=== PATIENT | male | born 1990 | race Caucasian/White ===

== ENCOUNTER 2023-01-15 18:47 | Emergency (ER) | payer OTHER, SELFPAY ==
--- NOTE | 2023-01-15 18:54 | ED.SKABFB ---
HPI - Skin/Abscess/Foreign Bdy General Chief complaint: Allergic Reaction Stated complaint: hives x2 days , throat swelling Time Seen by Provider: 01/15/23 21:38 Source: patient Mode of arrival: ambulatory Limitations: no limitations History of Present Illness HPI narrative: 32yoM with NO sig PMHx who is presenting to the ER with complaints of improving headache, allergic reaction, Urticaria, throat tightness, difficulty breathing and upper lip swelling. He reports that he took Benadryl and then Jasmin prior to arrival and came here for further evaluation treatment. Reports on Tuesday he was at a friend's house and he did obtain some mosquito bites. Although he has had mosquito bites in the past and has not had allergic reactions to them. He reports that a few years ago he had a similar presentation he is unsure what caused the allergic reaction. He has never had to be intubated for allergic reaction. Denies changes in lotions or detergents. Denies new medications or any changes in medications. Denies drainage from rash. Denies CP. Denies wheezing or throat swelling. Denies any difficulty swallowing. Denies any recent sick contacts or recent travel. Denies had fever, chills, body aches or recent illness, cough or shortness of breath, palpitations, nausea /vomiting /diarrhea, abdominal pain, stiffness of the muscles, muscle aches, dizziness, numbness or tingling or any other symptoms complaints or concerns at this time.. complaint: rash Onset (ago): week(s) ( Started on Tuesday continues to worsen) Location: generalized Severity: mild Quality: constant and pruritic Pain Consistency: constant Relieving factors: none Exacerbating factors: none Context: witnessed insect bite Treatments prior to arrival: other ( Benadryl and Jasmin) Related Data Previous Rx's Medication Instructions Recorded diphenhydramine HCl 25 mg tablet 50 mg PO TID PRN allergic reaction 01/15/23 (Benadryl Allergy) #15 tabs epinephrine 0.3 mg/0.3 mL 0.3 mg (0.3 mL) IM Q20M PRN 01/15/23 injection, auto-injector (EpiPen) anaphylaxis #2 ea famotidine 20 mg tablet (Pepcid) 20 mg PO BID rash #15 tabs 01/15/23 prednisone 20 mg tablet 40 mg PO DAILY inflammation 5 days 01/15/23 #10 tabs Allergies Allergy/AdvReac Type Severity Reaction Status Date / Time No Known Allergies Allergy Verified 01/15/23 18:56 [No Known Allergies*] Review of Systems Review of Systems: Constitutional : No Fever, No Chills , no body aches, no recent illness Head/Face: + resolved upper right lip facial swelling, No facial redness ENT/Mouth : No oral/throat swelling, No Hoarseness, No Swallowing Difficulty Eyes: No Eye Pain, No Swelling, No Redness Cardiovascular : No Chest Pain, + resolved SOB, No palpitations Respiratory : No Cough, No Sputum, No Wheezing, No Smoke Exposure, No Dyspnea Gastrointestinal : No Nausea, No Vomiting, No Diarrhea, No abdominal Pain Genitourinary : No Dysuria, No Urinary Frequency, No Hematuria Musculoskeletal : No joint pain, No Myalgias, No Joint Swelling Skin : No Skin Lesions, + rash Neuro : No Weakness, No Numbness, No Headache, No dizziness, No tingling Psych : No Anxiety/Panic, No Depression Heme/Lymph: No Bruising, No Lymphadenopathy Endocrine : No Polyuria, No Polydipsia Denies changes in lotions or detergents. Denies new medications or any changes in medications. Denies drainage from rash. Denies any recent sick contacts or recent travel. Yes all other systems are reviewed and are negative PMFSH Past Medical History Attestation statement: The following information was validated with the patient. Source: old records reviewed and nursing notes reviewed Social History Social History Advance Directives: No Advance Directives Information Provided: Yes Physical Exam Vital Signs: Vital Signs: Last Vital Signs Temp 98.1 F 01/15/23 18:57 Pulse 106 H 01/15/23 18:57 Resp 18 01/15/23 18:57 BP 146/107 H 01/15/23 18:57 Pulse Ox 100 01/15/23 18:57 O2 Del Method Room Air 01/15/23 18:57 BMI result Body Mass Index 28.2 Vital signs reviewed. Blood pressure Hypertensive at 146/107. Pulse tachycardic at 106. Respiration normal. Oxygen normal. Temperature normal. Appearance: Alert. Oriented X3. No acute distress. Head: Normal external exam. Normocephalic. Atraumatic. Eyes: PERRLA. EOMI. Conjunctiva and sclera normal. Eyelids normal. ENT: EAC normal. TM's Normal. Pharynx normal. Uvula midline. Moist mucous membranes. No lesions/ulcerations or masses noted on the tongue. Normal voice. No trismus noted. No drooling noted. No muffled voice noted. No angioedema noted. Neck: Normal inspection. Neck supple. FROM. No adenopathy. Thyroid Normal. No meningeal signs. CVS: Normal heart rate and rhythm. Heart sound normal. Pulses normal throughout. No murmurs/rales/gallops. Respiratory: No respiratory distress. Painless inspiration. Breath sounds normal. No wheezes/rales/rhonchi noted. Chest nontender. No accessory muscle usage noted or decreased air movement noted. Abdomen: Soft and nontender. Back: Full range of motion noted. Nontender. Skin: Skin warm and dry. Normal skin color. Normal skin turgor. No rashes/lesions/lacerations noted. Extremities: Extremities exhibit normal range of motion and nontender. Neuro: Oriented X 3. No motor deficit. No sensory deficit. Reflexes normal. Normal steady gait. No focal neuro deficits noted. CN's II-XII intact bilaterally? Vascular: + radial pulses. Normal cap refill. No cyanosis noted to upper extremity nails Course Course Course Narrative: This is an RME: Additional HPI, ROS, PE not included below will be deferred to primary provider. Patient is a 32-year-old male presents to the emergency department for evaluation of Urticaria x 5 days, reportedly unrelieved with Benadryl and then Jasmin. Today has throat tightness, rpeorts difficulty breathing, and upper lip swelling which prompted ED visit. No known allergies. Reports a similar event approximately 15 years ago of unknown etiology. PE: LSCTA, no angioedema, speaking clear full sentences, urticaria to the torso Reevaluation(s) Reevaluation #1: IMP/Plan: Allergic rxn. Not anaphylaxis. Not sepsis/ infectious etiology. Patient well appearing in no acute distress, breathing easily without throat symptoms. Speaking full sentences, and handling secretions without difficulty. There is no obvious threat to airway. Lungs are CTA in all arizmendi. No signs of angioedema, stridor, airway compromise, anaphylaxis or anaphylactic shock. Not c/w SSSS/ TEN/ Eryth multiforme/ Richardson Johnsons. Given HPI and PE - Will watch and observe after giving IM Solu-Medrol and Pepcid. patient already took Benadryl and Jasmin. If patient continues to be symptom free - will d/c with return precautions. Patient understands and agrees with plan Time: 21:58 Medications Administered Discontinued Medications Generic Name Dose Route Start Last Admin Trade Name Freq PRN Reason Stop Dose Admin Famotidine 20 mg 01/15/23 21:45 01/15/23 21:52 Famotidine 20 Mg Tablet PO 01/15/23 21:46 20 mg ONCE ONE Administration Methylprednisolone Sodium Succinate 60 mg 01/15/23 21:45 01/15/23 21:52 Methylprednisolone Sod Succ 125 Mg/2 Ml Vial IM 01/15/23 21:46 60 mg ONCE ONE Administration Medical Decision Making Medical Decision Making MDM Narrative: see course Differential Diagnosis Differential Diagnoses: The differential diagnosis associated with the presentation includes see course Admission/Observation Consideration of admission/observation: Escalation of care including admission/observation considered External Record Review External record reviewed: Inpatient record, Office record, Outpatient record, Prior outpatient labs, Prior outpatient radiology, Primary care record and Outside ED record All prior labs/imaging /EKG and notes that are accessible in our system reviewed by myself Prescription Management I considered prescription management with: Other ( prednisone, Benadryl, Pepcid and EpiPen) Social Determinants Patient?s care significantly limited by Social Determinants of Health including: Other Social Determinant of Health Discharge Plan Discharge Clinical Impression: Allergic reaction, Urticaria Patient Disposition: Home, Self-Care Instructions: Angioedema (ED), General Allergic Reaction (ED), Allergy Testing (ED) Prescriptions: New prednisone 20 mg tablet 40 mg PO DAILY 5 Days Qty: 10 0RF diphenhydramine HCl [Benadryl Allergy] 25 mg tablet 50 mg PO TID PRN (Reason: allergic reaction) Qty: 15 0RF famotidine [Pepcid] 20 mg tablet 20 mg PO BID Qty: 15 0RF epinephrine [EpiPen] 0.3 mg/0.3 mL auto-injector 0.3 mg IM Q20M PRN (Reason: anaphylaxis) Qty: 2 0RF Rx Instructions: do not exceed 3 doses per episode Referrals: Physician,None [Primary Care Provider] - (Your pcp this week for allergy testing referral) Interventions: ED Discharge Assessment Last Done: 01/15/23 21:56 Discharge Date/Time: 01/15/23 21:56
[2023-01-15 18:57] VITALS: BP 146/107; PULSE 106; RESP 18; TEMP 36.7; O2SAT 100; BMI 28.2
--- NOTE | 2023-01-15 20:47 | PC.NURSE ---
pt talking in full sentences no s/s of resp distress.
[2023-01-15] MEDS: Famotidine 20 MG TABLET PO (21:52)
[2023-01-15] MEDS: methylPREDNISolone Sod Succ 125 MG/2 ML VIAL 60 MG IM (21:52)
== END 2023-01-15 21:56 | disposition home or self-care (01) ==
PROVIDERS: Emergency Provider Emergency Medicine
DX: L50.9 Urticaria, unspecified (principal); T78.40XA Allergy, unspecified, initial encounter; X58.XXXA Exposure to other specified factors, initial encounter
CPT/HCPCS: 96372; 99283; 99284; J2930

== ENCOUNTER 2024-09-12 08:28 | Emergency (ER) | payer OTHER, SELFPAY ==
--- NOTE | ~2024-09-12 | XR_ITS ---
EXAMINATION: XR CHEST 1 VIEW HISTORY: near syncope COMPARISON: Comparison is made with the prior examination dated 04/16/2016. FINDINGS: A single AP portable view of the chest performed at 9:13 AM is submitted. The lungs are expanded and clear. There is no pleural effusion, pneumothorax, or pulmonary vascular congestion. The heart is normal in size. The bones are intact. XR/XR chest 1V IMPRESSION: No acute cardiopulmonary abnormality. Electronically signed by: Rowdy Chapa MD 09/12/2024 09:29 AM EDT
[2024-09-12 08:31] VITALS: BP 142/80; PULSE 72; RESP 20; TEMP 36.6; O2SAT 98; BMI 23.2
--- NOTE | 2024-09-12 09:03 | ED_ITS ---
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 He states he began to feel a warm sensation in his legs coupled after he sat for a bit and felt he was able to stand. When he went to stand up, his legs gave out and he was unable to stand again causing him to fall on the floor and prompted him to call his significant other. He explains this is abnormal for him. Patient states that he is a runner and runs approximately 8-9 miles per day and stays active. 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 He states that he is experiencing consistent chills and nausea since the incident this morning. He denies, loss of consciousness, headstrike, dizziness, headache, current shortness of breath, current chest pain, visual changes or vomiting. Onset (ago): hour(s) Associated symptoms: fever/chills (chills, no reported fever ), nausea/vomiting (nausea without vomiting), shortness of breath (now resolved), weakness (weakness in lower extremities - now resolved) and other (near syncopal episode) Treatments prior to arrival: none Related Data Previous Rx's ?Medication ?Instructions ?Recorded diphenhydramine HCl 25 mg tablet 50 mg (2 x 25 mg) PO TID PRN 01/15/23 (Benadryl Allergy) allergic reaction #15 tabs epinephrine 0.3 mg/0.3 mL 0.3 mg (0.3 mL) IM Q20M PRN 01/15/23 injection, auto-injector (EpiPen) anaphylaxis #2 ea famotidine 20 mg tablet (Pepcid) 20 mg PO BID rash #15 tabs 01/15/23 prednisone 20 mg tablet 40 mg (2 x 20 mg) PO DAILY 01/15/23 inflammation 5 days #10 tabs Allergies Allergy/AdvReac Type Severity Reaction Status Date / Time No Known Allergies Allergy Verified 09/12/24 08:33 [No Known Allergies*] Review of Systems 2 Constitutional: Constitutional: Reports no additional constitutional complaints, Reports chills, Denies fever(s), Denies night sweats and Reports weakness (now resolved) Eyes: Eyes: Reports no additional eye complaints, Denies blurry vision, Denies change in vision, Denies diplopia, Denies eye discharge, Denies loss of vision and Denies eye pain ENT: Denies dizziness Cardiovascular: Cardiovascular: Denies chest pain, Denies lightheadedness, Denies Loss of Consciousness and Reports dyspnea (now resolved) Respiratory: Respiratory: Reports dyspnea (now resolved) Gastrointestinal: Gastrointestinal: Reports no additional gastrointestinal complaints, Denies abdominal pain, Denies melena, Denies hematochezia, Denies change in bowel habits and Denies change in stool character Genitourinary: Genitourinary: Reports no additional male genitourinary complaints, Denies hematuria, Denies oliguria, Denies difficulty urinating, Denies dysuria, Denies urinary frequency, Denies urinary hesitancy, Denies urinary incontinence and Denies urinary urgency Musculoskeletal: Musculoskeletal: Reports no additional musculoskeletal complaints, Denies numbness and Denies tingling Neurologic: Denies dizziness, Denies loss of vision, Denies numbness, Denies tingling, Reports weakness (now resolved) and Reports other (near syncopal episode) Psychiatric: Psychiatric: Reports no additional psychiatric complaints Endocrine: Endocrine: Reports no additional endocrine complaints Hematologic/Lymphatic: Hematologic/Lymphatic: Reports no additional hematologic/lymphatic complaints Allergic/Immunologic: Allergic/Immunologic: Reports no additional allergic/immunologic complaints [facility] Past Medical History Attestation statement: The following information was validated with the patient. (all information validated with the patient's significant other) [facility] Narrative: Estela Thyrodititis Source: old records reviewed, nursing notes reviewed and other (patient's significant other provided additional history and confirmed the history provided by the patient. ) Physical Exam ED Vital Signs: Vital Signs - 24 hr 09/12/24 08:31 09/12/24 12:37 Temperature 97.8 F 98.0 F Pulse Rate 72 57 Respiratory Rate 20 16 Blood Pressure 142/80 H 142/76 H Pulse Oximetry 98 100 Oxygen Delivery Method Room Air Room Air BMI result Body Mass Index 23.2 Const General: cooperative, no acute distress, alert and awake Nutritional Appearance: well nourished Orientation/consciousness: patient oriented x3 Limitations: no limitations HENMT Head: Yes normal to inspection and Yes atraumatic Ears: hearing grossly normal bilaterally and external ears normal General nose exam: Normal external nose present, no nasal discharge noted and no epistaxis Face and sinus: Yes normal facial exam, No abrasion and No laceration Mouth: Normal oral and palatal mucosa present, no drooling and no muffled voice Eyes General: appearance normal, both eyes and all related structures Periorbital: periorbital findings normal Eyelids: Yes eyelids normal Conjunctivae: conjunctivae normal Pupils: Equal, round and reactive pupils present EOM: EOMs intact bilaterally Neck Neck: Yes normal visual inspection, Yes full ROM and Yes no lymphadenopathy Chest Chest palpation & inspection: normal inspection of the chest Resp Effort & Inspection: normal respiratory effort and able to speak in complete sentences GI Inspection: Yes normal to inspection Neuro General: patient oriented x3, moves all extremities and CN's II-XI intact bilaterally Cranial nerves: Yes Equal, round and reactive pupils present Cognition (Neuro): normal cognition Extrem General: Yes normal to inspection, Yes full ROM and Yes capillary refill normal Psych Appearance: grossly normal Mental Status: mental status grossly normal Affect: normal affect Attitude: cooperative Thought process: Normal thought process present Thought content: Normal thought content present Insight: Good insight present (Psych) Medications Administered Discontinued Medications Generic Name Dose Route Start Last Admin Trade Name Freq PRN Reason Stop Dose Admin Sodium Chloride 1,000 mls @ 999 mls/hr 09/12/24 10:45 09/12/24 11:20 Ns IV 09/12/24 11:45 999 mls/hr .Q1H1M RODRIGO Administration Medical Decision Making Medical Decision Making MDM Narrative: 34 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 Clinical presentation are suggestive of a near vasovagal syncopal episode. EKG showed bradycardia of 53 BPM, however patient explains he is a daily runner who runs approximately 8-9 miles per day - making this heart rate likely to be his baseline. Discussed case with cardiology team due to near syncope and they agree EKG is normal. Troponin resulted within normal limits further ruling out cardiac etiology. Chest Xray was ordered to rule out any cardiopulmonary process, and resulted with no acute process. D-Dimer resulted within normal limits at 150 NG/ML - lowering my suspicion for pulmonary embolism. TSH reflex T4 ordered due to Estela diagnosis and patient not taking prescribed levothyroxine for 4-5 weeks. TSH resulted within normal limits at 1.79 lowering my suspicion of thyroid etiology for near syncope. COVID/Flu/RSV swabs negative. Patient received IV fluids and stated that he felt significantly better with resolved symptoms. I explained my physical exam findings as well as all test results to the patient and the patient's significant other. I answered all questions asked by the patient and the patient's significant other.I stressed the importance of the patient taking his medication as directed (either prescribed or as the over the counter packaging recommends). I stressed the importance of the patient following up with his primary care provider. I stressed the importance of the patient returning to the emergency department immediately if his symptoms were to worsen or if he were to develop any dizziness, shortness of breath, difficulty breathing, chest pain, blurry vision, loss of vision, nausea, vomiting, abdominal pain, fever, chills, back pain, or any other complaints. Patient and the patient's significant other verbalized agreement and understanding with this treatment plan and discharge Differential Diagnosis Differential Diagnoses: The differential diagnosis associated with the presentation includes Estela exacerbation [place] Pulmonary embolism Cardiac arrhythmia Viral illness Near syncope Vasovagal syncope Orthostatic hypotension Admission/Observation Consideration of admission/observation: Escalation of care including admission/observation considered Patient would have been admitted to the hospital had his work up had any findings where hospital admission was appropriate and his clinical presentation warranted hospital admission. Consult Healthcare Provider Management of the patient was discussed with: [employer] Operator (Spoke with the cardiology team as noted in the MDM rationale portion of this note) Lab Data [facility] Lab Attestation statement: I reviewed the patient's lab results. My interpretation of these results are in the MDM Rationale portion of this note. 09/12/24 09:35 09/12/24 09:35 Labs: Lab Results 09/12/24 09/12/24 Range/Units 09:35 10:47 WBC 4.9 (4.8-10.8) X10*3/uL RBC 4.95 (4.60-5.80) X10*6/uL Hgb 15.1 (14.0-18.0) g/dl Hct 43.8 (42.0-52.0) % MCV 88.5 (80.0-98.0) fL MCH 30.5 (27.0-33.0) pg MCHC 34.5 (31.0-36.0) g/dl RDW 12.3 (11.0-16.0) % Plt Count 213 (160-400) X10*3/uL MPV 10.3 (9.4-12.4) fL Immature Gran % (Auto) 0.2 (0.0-0.4) % Neut % (Auto) 57.7 (45-73) % Lymph % (Auto) 29.4 (20-40) % Charles % (Auto) 11.1 H (2-11) % Eos % (Auto) 0.8 (0-4) % Baso % (Auto) 0.8 (0-2) % Lymph # (Auto) 1.4 (1.2-4.9) X10*3/uL Charles # (Auto) 0.5 (0.1-1.2) X10*3/uL Eos # (Auto) 0.0 (0.0-0.4) X10*3/uL Baso # (Auto) 0.0 (0.0-0.2) X10*3/uL Abs Immat Gran (auto) 0.01 (0.00-0.03) X10*3/uL Absolute Neuts (auto) 2.8 (2.0-8.3) x10*3/uL Absolute Nucleated RBC 0.000 (0.0-0.012) X10*3/uL Nucleated RBC % (auto) 0.0 (0.0-0.2) /100WBC PT 12.6 H (10.9-12.4) SEC INR 1.1 (0.9-1.1) D-Dimer High Sensitivty < 150 < 150 NG/ML Sodium 144 (135-145) mmol/L Potassium 3.7 (3.3-5.1) mmol/L Chloride 110 H (96-108) mmol/L Carbon Dioxide 24 (22-29) mmol/L Anion Gap 14 (12-20) BUN 12 (9-16) mg/dL Creatinine 0.86 (0.5-1.4) mg/dL Estim Creat Clear Calc 111.2 Estimated GFR > 60 Random Glucose 88 (60-115) mg/dL Calcium 9.7 (8.4-10.2) mg/dL Magnesium 1.8 (1.6-2.6) mg/dL Total Bilirubin 0.9 (0.0-1.0) mg/dL AST 28 (5-37) U/L ALT 26 (0-40) U/L Alkaline Phosphatase 56 (39-117) U/L Troponin I High Sens < 2.7 (<3.5-35.0) ng/L Total Protein 7.5 (6.5-8.0) g/dL Albumin 4.8 (3.5-5.0) g/dL TSH 1.79 (0.32-4.0) uIU/mL Urine Color Yellow Urine Appearance Clear Urine pH 6.5 (5.0-9.0) Ur Specific [place] <= 1.005 (1.005-1.025) Urine Protein Negative (Neg-Trace) mg/dL Urine Glucose (UA) Negative (Negative) mg/dL Urine Ketones 15 (Negative) mg/dL Urine Blood Negative (Negative) Urine Nitrite Negative (Negative) Ur Leukocyte Esterase Negative (Negative) Influenza Type A (PCR) NEGATIVE (Negative) Influenza Type B (PCR) NEGATIVE (Negative) RSV RNA Qual (PCR) NEGATIVE (Negative) SARS-CoV-2 RNA (RT-PCR) NEGATIVE (Negative) Independent Interpretation I performed an independent interpretation of an: EKG and Plain X-Ray Interpretation: My interpretation is in agreement with the radiologist's impression of this imaging study. LEXAMINATION: XR CHEST 1 VIEW HISTORY: near syncope COMPARISON: Comparison is made with the prior examination dated 04/16/2016. FINDINGS: A single AP portable view of the chest performed at 9:13 AM is submitted. The lungs are expanded and clear. There is no pleural effusion, pneumothorax, or pulmonary vascular congestion. The heart is normal in size. The bones are intact. XR/XR chest 1V IMPRESSION: No acute cardiopulmonary abnormality. Electronically signed by: Rowdy Chapa MD 09/12/2024 09:29 AM EDT RP Dictated By: Rowdy Chapa MD Signed By: Electronically signed by Rowdy Chapa MD 09/12/24 0929 LI independently interpreted this EKG and am in agreement with the below findings: Vent. Rate: 53 BPM Atrial Rate: 53 BPM P-R Int: 110 ms QRS Dur: 84 ms QT Int: 406 ms P-R-T Axes: 9 50 15 degrees QTcB Int: 380 ms Sinus bradycardia with short NV No previous ECGs available DD/ 6 Radiology Impression Discussion of test interpretation with radiology: I have reviewed the radiologist's reading. Independent Historian Clinical information obtained from an independent historian. History obtained from or confirmed by: Other (PT significant other provided additional history and PT confirmed information that was given ) Critical Care Time Critical Care Time Critical Care Time: Yes Total Critical Care Time: 32 Attestation: I spent 32 minutes of Critical Care Time with this patient. This does not include time spent on separately reported billable procedures. Discharge Plan Discharge Clinical Impression: Near syncope Patient Disposition: Home, Self-Care Instructions: Near Syncope (ED) Additional Instructions: Your work up today was reassuring there is no emergent cause for your symptoms. Follow up with your primary care provider. Return to the emergency department immediately if your symptoms worsen or if you develop any numbness, tingling, dizziness, shortness of breath, difficulty breathing, chest pain, blurry vision, loss of vision, nausea, vomiting, abdominal pain, fever, chills, back pain, or any other complaints. Please see the information below about our Patient Portal. If you are not yet enrolled in the [facility] Patient Portal, you will receive an enrollment email invitation following your visit to any [facility] setting. You may also self-enroll in the Patient Portal by visiting our website: [email or web address] The following information is required to access the Patient Portal: - Your [facility] Medical Record Number - Your personal home email address (must match what is in your electronic medical record, Registration staff can assist with this) - Name - Date of Capabilities of the Patient Portal: - Message some providers - View upcoming appointments - Access your health summary, medical history, and visit history - View current conditions and allergies - View procedure and lab results - View your medications, including guidelines, side effects, and precautions - Complete pre-appointment questionnaires requested by your provider - Ready summary reports of your office visits and procedures To access the Patient Portal Mobile [employer], follow these directions: - Search [employer] in the [employer]antel Store or Google Chartboost Store - Download the [employer]el - Search for [facility] - Enter your login/password Prescriptions: No Action prednisone 20 mg tablet 40 mg PO DAILY 5 Days Qty: 10 0RF diphenhydramine HCl [Benadryl Allergy] 25 mg tablet 50 mg PO TID PRN (Reason: allergic reaction) Qty: 15 0RF famotidine [Pepcid] 20 mg tablet 20 mg PO BID Qty: 15 0RF epinephrine [EpiPen] 0.3 mg/0.3 mL auto-injector 0.3 mg IM Q20M PRN (Reason: anaphylaxis) Qty: 2 0RF Rx Instructions: do not exceed 3 doses per episode Referrals: [facility] Family Medicine [Provider Group] (Call to establish and follow up with a primary care provider. If you already have a primary care provider, please follow up with them.) [facility] Primary [facility] [Provider Group] (Call to establish and follow up with a primary care provider. If you already have a primary care provider, please follow up with them.) [facility] Primary [facility] [Provider Group] (Call to establish and follow up with a primary care provider. If you already have a primary care provider, please follow up with them.) [facility] Primary [facility] [Provider Group] (Call to establish and follow up with a primary care provider. If you already have a primary care provider, please follow up with them.) Stand Alone Forms: Work/School Release Interventions: ED Discharge Assessment Last Done: 09/12/24 12:37 Discharge Date/Time: 09/12/24 12:38 Print Language: Serbian
--- NOTE | 2024-09-12 09:05 | ECG_ITS ---
Test Reason : NEAR SYNCOPE Blood Pressure : */* mmHG Vent. Rate : 53 BPM Atrial Rate : 53 BPM P-R Int : 110 ms QRS Dur : 84 ms QT Int : 406 ms P-R-T Axes : 9 50 15 degrees QTcB Int : 380 ms Sinus bradycardia with short CA Otherwise normal ECG No previous ECGs available Referred By: Ansley Pete Electronically Signed By: TRACEY BOWLING
[2024-09-12 09:41] LABS: MANUAL DIFF FLAG NO
[2024-09-12 09:42] LABS: Basophils Percent Auto 0.8 % (0-2); Eosinophils Percent Auto 0.8 % (0-4); Hematocrit 43.8 % (42.0-52.0); Hemoglobin 15.1 g/dl (14.0-18.0); Imm Gran Abs Auto 0.01 X10*3/uL (0.00-0.03); Imm Gran Pct Auto 0.2 % (0.0-0.4); Lymphocytes Absolute Auto 1.4 X10*3/uL (1.2-4.9); Lymphocytes Percent Auto 29.4 % (20-40); Mean Corpuscular HGB Conc 34.5 g/dl (31.0-36.0); Mean Corpuscular Hemoglobin 30.5 pg (27.0-33.0); Mean Corpuscular Volume 88.5 fL (80.0-98.0); Mean Platelet Volume 10.3 fL (9.4-12.4); Monocytes Absolute Auto 0.5 X10*3/uL (0.1-1.2); Monocytes Percent Auto 11.1 % (2-11); Neutrophils Absolute Auto 2.8 x10*3/uL (2.0-8.3); Neutrophils Percent Auto 57.7 % (45-73); Platelet Count 213 X10*3/uL (160-400); Red Blood Count 4.95 X10*6/uL (4.60-5.80); Red Cell Distribution Width 12.3 % (11.0-16.0); White Blood Count 4.9 X10*3/uL (4.8-10.8)
[2024-09-12 09:54] LABS: INTERNATIONAL NORM RATIO 1.1 (0.9-1.1); Prothrombin Time 12.6 SEC (10.9-12.4)
[2024-09-12 09:58] LABS: Alanine Aminotransferase 26 U/L (0-40); Albumin Level 4.8 g/dL (3.5-5.0); Alkaline Phosphatase 56 U/L (39-117); Anion Gap 14 (12-20); Aspartate Amino Transferase 28 U/L (5-37); Bilirubin Total 0.9 mg/dL (0.0-1.0); Blood Urea Nitrogen 12 mg/dL (9-16); Calcium 9.7 mg/dL (8.4-10.2); Carbon Dioxide 24 mmol/L (22-29); Chloride 110 mmol/L (96-108); Creatinine Clr Calc Pharmacy 111.2; Estimated Glomerular Filt Rate > 60; Glucose Random 88 mg/dL (60-115); Magnesium 1.8 mg/dL (1.6-2.6); Potassium 3.7 mmol/L (3.3-5.1); Sodium 144 mmol/L (135-145); Total Protein 7.5 g/dL (6.5-8.0)
[2024-09-12 10:06] LABS: Troponin-I High Sensitivity < 2.7 ng/L (<3.5-35.0)
[2024-09-12 10:19] LABS: Influenza A PCR NEGATIVE (Negative); Influenza B PCR NEGATIVE (Negative); Resp Syncy Virus RNA Qual PCR NEGATIVE (Negative); SARS COV2 PCR INHOUSE NEGATIVE (Negative)
[2024-09-12 10:35] LABS: D Dimer High Sensitivity < 150 NG/ML
[2024-09-12 10:58] LABS: TSH reflex Free T4 1.79 uIU/mL (0.32-4.0)
[2024-09-12 11:09] LABS: Appearance Urine Clear; Color Urine Yellow; Glucose Urine UA Negative (Negative); Leukocyte Esterase Urine Negative (Negative); Nitrite Urine Negative (Negative); PH 6.5 (5.0-9.0); Specific Gravity - Urine <= 1.005 (1.005-1.025); Urine Blood Negative (Negative); Urine Ketones 15 mg/dL (Negative); Urine Protein Negative (Neg-Trace)
[2024-09-12 11:18] LABS: D Dimer High Sensitivity < 150 NG/ML
[2024-09-12] MEDS: 0.9 % Sodium Chloride 1,000 ML 999 ML IV (11:20)
[2024-09-12 12:37] VITALS: BP 142/76; PULSE 57; RESP 16; TEMP 36.7; O2SAT 100
== END 2024-09-12 12:38 | disposition home or self-care (01) ==
PROVIDERS: Physician Assistant Medical; Emergency Provider Emergency Medicine
DX: R55 Syncope and collapse (principal); R00.1 Bradycardia, unspecified; R06.02 Shortness of breath; Z79.899 Other long term (current) drug therapy; Z03.818 Encounter for observation for suspected exposure to other biological agents ruled out
CPT/HCPCS: 0241U; 36415; 71045; 80053; 81003; 83735; 84443; 84484; 85025; 85379; 85610; 93005; 99283; 99284

== ENCOUNTER → 2024-09-12 09:05 | Outpatient (BNV) | payer OTHER, SELFPAY | PROVIDERS: Emergency Provider Emergency Medicine; Visit Provider Radiology Diagnostic Radiology | DX: R55 Syncope and collapse (principal) | CPT/HCPCS: 71045 ==

== ENCOUNTER → 2024-09-12 09:05 | Outpatient (BNV) | payer OTHER, SELFPAY | PROVIDERS: Emergency Provider Emergency Medicine; Visit Provider Internal Medicine | DX: I45.6 Pre-excitation syndrome (principal); R00.1 Bradycardia, unspecified | CPT/HCPCS: 93010 ==

== ENCOUNTER 2025-03-29 13:57 | Outpatient (AMB) | payer OTHER, SELFPAY ==
--- NOTE | 2025-03-29 14:10 | A.OFFPC_ITS ---
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: No Accompanied by: Self / Same As Patient Allergies Beef Containing Products Allergy (Severe, Verified 03/29/25 14:34) Swelling corn Allergy (Unknown, Verified 03/29/25 14:34) Unknown wheat Allergy (Unknown, Verified 03/29/25 14:34) Unknown bananas Allergy (Severe, Uncoded 03/29/25 14:34) Unknown Tobacco use date assessed: 03/29/25 Dental Screening Dental Screen Date: 03/29/25 Did you have a dental visit in the last 12 months?: No Did you have a dental problem in the last 6 months where you did not have access to dental care?: No Was dental information given to patient?: No HPI ADVERTISING ASSISTANT MANAGER establish care HPI Details Previous PCP: [facility] Last visit: year and half ago Last PE: same Specialist: will need an angio technologist OBGYN:n/a Past medical history:ADDH since 6 grade until senior in high school, tamar's disease, anaphylactic, Medications: Family HX: maternal bipolar, grandmother, mother, substance on both sides mother and father, depression-father, schizophrenia paternal uncle Problem: The patient is a 35-year-old male presenting to [facility]. He is here with concerns related to ADHD, Tamar's Thyroiditis, allergic reactions, syncope, anxiety, and substance use disorder. The patient was diagnosed with ADHD in the 6th grade and was medicated until his senior year of high school. He reports that ADHD may be contributing to his current mental health issues, including anxiety and forgetfulness. Tamar's Thyroiditis was diagnosed during his first visit to a previous healthcare provider, and he was prescribed levothyroxine. However, due to the closure of the healthcare facility, he has not been able to continue his medication, leading to a collapse at work and an ER visit. The patient experiences severe allergic reactions, characterized by tingling, hives, and swelling of the throat and lips. He uses Benadryl to manage these reactions but has had to visit the ER for severe episodes. He reports episodes of syncope, particularly after sitting and attempting to stand, which have been associated with lightheadedness and shortness of breath. These episodes have occurred despite adequate hydration and have been linked to his cannabis use. The patient has a history of substance use disorder, specifically with cannabis, which he uses frequently. He acknowledges that cannabis may be exacerbating his syncope and anxiety symptoms. [facility] Medical History (Updated 04/02/25 @ 02:02 by LIZETTE Culp) Anxiety Tamar's thyroiditis ADHD Family History Father Substance abuse Schizophrenia Depression Maternal Grandmother Bipolar 2 disorder Mother Substance abuse Bipolar 2 disorder Social History Household Members: Spouse Housing: House Alcohol intake: never Patient Tobacco Use Status: Never used Tobacco e-Cigarette/Vaping Use: Never Used Substance Use Type: Marijuana Current occupational status: employed Current occupation: Maintance Cognitive needs: No Hearing needs: No Vision needs: Yes Questionnaire Thrive Questionnaire Date Thrive assessed: 03/27/25 I am a: Patient What is your living situation today?: I have a steady place to live Within the past 12 months, did the food you bought not last and you didn't have the money to get more?: Sometimes True Within the past 12 months, did you worry whether your food would run out before you got money to buy more?: Sometimes True Do you have trouble paying for medicines?: Yes Do you have trouble getting transportation to medical appointments?: No Do you have trouble paying your heating and electricity bill?: No Do you have trouble taking care of your child, family member or friend?: No Do you have trouble with day-to-day activities such as bathing, preparing meals, shopping, managing finances, etc.?: No Are you currently unemployed and looking for a job?: No Are you interested in more education?: Yes Currently or been in a relationship where the following occur: No concerns repor ramu THRIVE Score: 2 AUDIT C Alcohol Use Questionnaire (AUDIT-C) 1. How often do you have a drink containing alcohol?: Never 3. How often do you have six or more drinks on one occasion?: Never Total Score: 0 YANELIS-7 AMB Questionnaire YANELIS-7 Feeling nervous, anxious, or on edge: 2 = More than half the days Not being able to stop or control worryin = More than half the days Worrying too much about different things: 2 = More than half the days Trouble relaxin = More than half the days Being so restless that it is hard to sit still: 2 = More than half the days Becoming easily annoyed or irritable: 2 = More than half the days Feeling afraid as if something awful might happen: 2 = More than half the days Total YANELIS-7 score (0-4 normal; 5-9 mild; 10-14 moderate; 15-21 severe): 14 Source: Developed by Drs. Rowdy Tapia, Arlyn Alcazar, Jesús Henao and colleagues, with an educational sinan from [employer]. Review of Systems Const Denies headache(s) Eyes Denies loss of vision ENT Denies vertigo, Denies dizziness, Denies headache(s) and Denies sore throat Card Denies chest pain, Reports syncope, Denies leg edema, Reports lightheadedness and Reports dyspnea (assocated with syncope) Resp Denies cough, Denies hemoptysis, Reports dyspnea (assocated with syncope) and Denies wheezing GI Denies abdominal pain, Denies melena, Denies constipation, Denies diarrhea and Denies vomiting Denies dysuria, Denies urinary frequency and Denies urinary urgency Musc Denies arthralgias, Denies joint swelling, Denies numbness and Denies tingling Skin/Breast Reports lesions (hives during allergic episodes) Neuro Denies Abnormal speech present, Denies behavioral changes, Denies vertigo, Denies dizziness, Reports syncope, Denies headache(s), Denies loss of vision, Reports memory loss (impaired short term memory), Denies numbness and Denies tingling Psych Reports anxiety, Denies behavioral changes, Reports depression, Reports memory loss (impaired short term memory) and Reports panic attacks [place]/Lymph Denies easy bleeding and Denies easy bruising Aller/Immun Denies wheezing Physical exam (Primary Care) Vital Signs: Last Vital Signs Temp 97.3 F 03/29/25 14:11 Pulse 74 03/29/25 14:11 Resp 18 03/29/25 14:11 BP 160/110 H 10/17/25 14:11 Pulse Ox 97 03/29/25 14:11 Oxygen Delivery Method Room Air 03/29/25 14:11 BMI result Body Mass Index 21.5 Tobacco/Smoking Status: Tobacco use Status Tobacco use date assessed 03/29/25 03/29/25 14:32 Patient Tobacco Use Status Never used Tobacco 03/29/25 14:32 e-Cigarette/Vaping Use Never Used 03/29/25 14:32 Thrive Assessment: Date of Thrive Assessment Date Thrive assessed 03/27/25 03/29/25 14:32 Currently or been in a relationship where the following occur: No concerns reported Const General: healthy appearing, no acute distress, alert and awake Nutritional Appearance: well nourished Orientation/consciousness: oriented to person, oriented to place and oriented to time HENMT Ears: TM's normal bilaterally General nose exam: Normal nasal mucous membranes and turbinates present Eyes Conjunctivae: conjunctivae normal Sclerae: sclerae normal Pupils: Equal, round and reactive pupils present Neck Neck: Yes no lymphadenopathy and Yes no JVD Thyroid: Thyroid normal Carotids: no bruits Resp Effort & Inspection: normal respiratory effort and not tachypneic Auscultation: no crackles, no rales, no rhonchi and no wheezes Cardio Rate: regular rate Rhythm: regular rhythm Heart sounds: S1 normal heart sound present, S2 normal heart sound present, no murmurs and normal S1 and S2 GI Palpation (GI): Soft to palpation, nontender, no hepatomegaly and no splenomegaly Auscultation: normal bowel sounds Skin General skin exam: no rashes or lesions noted and dry skin Neuro General: oriented to person, oriented to place and oriented to time Cranial nerves: Yes Equal, round and reactive pupils present and Yes Nystagmus not present Speech: No Abnormal speech present Gait exam (Neuro): Normal gait present Motor exam (neuro): no tremor noted Romberg Test: Negative Extrem Right upper extremity: full ROM Left upper extremity: full ROM Right lower extremity: full ROM; no edema Left lower extremity: full ROM; no edema Psych Mental Status: mental status grossly normal Speech and movement: Normal speech and movement present Affect: normal affect Attitude: cooperative Thought process: Normal thought process present Coding Level of Care Code New Pt Level 4 (37524) Diagnoses Tamar's thyroiditis E06.3 Allergic reaction, subsequent encounter T78.40XD Encounter type: subsequent encounter Syncope, unspecified syncope type R55 Syncope type: unspecified Anxiety F41.9 Substance use disorder F19.90 Attention deficit hyperactivity disorder (ADHD), unspecified ADHD type F90.9 Attention deficit-hyperactivity disorder type: unspecified Elevated blood pressure reading in office without diagnosis of hypertension R03.0 Time Spent (min) 39 Assessment & Plan Assessment & Plan (1) Tamar's thyroiditis: Code(s): E06.3 - Autoimmune thyroiditis Category: Medical Plan: The patient will have thyroid function tests repeated, including T4, to assess the need for levothyroxine therapy. (2) Allergic reaction: Code(s): T78.40XA - Allergy, unspecified, initial encounter Category: Medical Qualifiers: Encounter type: subsequent encounter Qualified Code(s): T78.40XD - Allergy, unspecified, subsequent encounter Plan: The patient will be referred to an angio technologist for further evaluation and management of allergic reactions. (3) Syncope: Code(s): R55 - Syncope and collapse Category: Medical Qualifiers: Syncope type: unspecified Qualified Code(s): R55 - Syncope and collapse Plan: The patient is advised to monitor blood pressure at home and reduce cannabis use to mitigate syncope episodes. (4) Anxiety: Code(s): F41.9 - Anxiety disorder, unspecified Category: Medical Plan: Hydroxyzine will be prescribed for anxiety management, with instructions to take it at night initially due to potential drowsiness. (5) Substance use disorder: Code(s): F19.90 - Other psychoactive substance use, unspecified, uncomplicated Category: Medical Plan: The patient is encouraged to reduce cannabis use to alleviate syncope and anxiety symptoms. (6) ADHD: Code(s): F90.9 - Attention-deficit hyperactivity disorder, unspecified type Category: Medical Qualifiers: Attention deficit-hyperactivity disorder type: unspecified Qualified Code(s): F90.9 - Attention-deficit hyperactivity disorder, unspecified type Plan: The patient will be referred to a psychiatric nurse practitioner for evaluation and management of ADHD symptoms. (7) Elevated blood pressure reading in office without diagnosis of hypertension: Code(s): R03.0 - Elevated blood-pressure reading, without diagnosis of hypertension Category: Medical Plan: Blood pressure elevated in office. Reports increased anxiety most likely the cau se. Reinforced low salt diet. Encouraged checking blood pressure at home and contact office if this continues to be elevated. Orders: Orders Complete Blood Count Auto Diff 04/01/2500. - Encounter for general adult medical examination without abnormal findings UA CC w/rflx Micro + Cult 04/01/25 Z. - Encounter for general adult medical examination without abnormal findings Vitamin D 25-OH Total 04/01/25. - Encounter for general adult medical examination without abnormal findings Lipid Panel 04/01/25. - Encounter for general adult medical examination without abnormal findings TSH reflex Free T4 04/01/25. - Encounter for general adult medical examination without abnormal findings Free T4 (Free Thyroxine) 04/01/25. - Encounter for general adult medical examination without abnormal findings Referrals Allergy & Immunology Referral T78.2XXA - Anaphylactic shock, unspecified, initial encounter, T78.40XD - Allergy, unspecified, subsequent encounter Psychiatry Outpatient Consultation Service F41.9 - Anxiety disorder, unspecified, F90.9 - Attention-deficit hyperactivity disorder, unspecified type Medications: New hydroxyzine HCl 50 mg PO BID PRN 60 tabs 0RF itching epinephrine (EpiPen 2-Raymond) for 2 doses 0.3 mg (0.3 mL) IM Q10M PRN 2 ea 2RF anaphylaxis Discontinued epinephrine (EpiPen) do not exceed 3 doses per episode Discontinued Reason: Duplicate 0.3 mg (0.3 mL) IM Q20M PRN 2 ea 0RF anaphylaxis
[2025-03-29 14:11] VITALS: BP 160/110; PULSE 74; RESP 18; TEMP 36.3; O2SAT 97; BMI 21.5
== END 2025-03-29 15:13 | disposition home or self-care (01) ==
LOC: HO.HMCH 13:58
DX: E06.3 Autoimmune thyroiditis (principal); T78.40XD Allergy, unspecified, subsequent encounter; R55 Syncope and collapse; F41.9 Anxiety disorder, unspecified; F19.90 Other psychoactive substance use, unspecified, uncomplicated; F90.9 Attention-deficit hyperactivity disorder, unspecified type; R03.0 Elevated blood-pressure reading, without diagnosis of hypertension

== ENCOUNTER 2025-04-01 10:29 | Outpatient (REF) | payer OTHER, SELFPAY ==
[2025-04-01 12:01] LABS: MANUAL DIFF FLAG NO
[2025-04-01 12:09] LABS: Hematocrit 44.8 % (42.0-52.0); Hemoglobin 15.2 g/dl (14.0-18.0); Imm Gran Abs Auto 0.01 X10*3/uL (0.00-0.03); Imm Gran Pct Auto 0.2 % (0.0-0.4); Lymphocytes Absolute Auto 1.9 X10*3/uL (1.2-4.9); Mean Corpuscular HGB Conc 33.9 g/dl (31.0-36.0); Mean Corpuscular Hemoglobin 30.0 pg (27.0-33.0); Mean Corpuscular Volume 88.5 fL (80.0-98.0); NRBC Abs Auto 0.000 X10*3/uL (0.0-0.012); NRBC Pct Auto 0.0 /100WBC (0.0-0.2); Platelet Count 193 X10*3/uL (160-400); Red Blood Count 5.06 X10*6/uL (4.60-5.80); White Blood Count 4.4 X10*3/uL (4.8-10.8)
[2025-04-01 12:31] LABS: Appearance Urine Clear; Glucose Urine UA Negative (Negative); PH 8.5 (5.0-9.0); Specific Gravity - Urine 1.015 (1.005-1.025)
[2025-04-01 12:33] LABS: Cholesterol 135 mg/dL (<200); HDL Cholesterol 47 mg/dL (>40); Triglycerides 78 mg/dL (<150)
[2025-04-01 12:42] LABS: Free T4 (Free Thyroxine) 0.91 ng/dL (0.71-1.85)
== END 2025-04-01 10:30 | disposition home or self-care (01) ==
LOC: HO.10HDL 10:29
DX: Z00.00 Encounter for general adult medical examination without abnormal findings (principal); Z13.21 Encounter for screening for nutritional disorder; Z13.29 Encounter for screening for other suspected endocrine disorder; Z13.6 Encounter for screening for cardiovascular disorders
CPT/HCPCS: 36415; 80061; 81003; 82306; 84439; 84443; 85025

== ENCOUNTER 2025-05-17 08:29 | Outpatient (AMB) | payer OTHER, SELFPAY ==
[2025-05-17 08:32] VITALS: BP 110/78; PULSE 59; RESP 18; O2SAT 99; BMI 21.8
--- NOTE | 2025-05-17 08:32 | A.OFFPC_ITS ---
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 Accompanied by: Self / Same As Patient Allergies Beef Containing Products Allergy (Severe, Verified 05/17/25 08:37) Swelling corn Allergy (Unknown, Verified 05/17/25 08:37) Unknown wheat Allergy (Unknown, Verified 05/17/25 08:37) Unknown bananas Allergy (Severe, Uncoded 05/17/25 08:37) Unknown Medication List - Last Reconciled 05/17/25 by LIZETTE Culp diphenhydramine HCl (Benadryl Allergy) 50 mg (2 x 25 mg) PO TID PRN epinephrine (EpiPen 2-Raymond) 0.3 mg (0.3 mL) IM Q10M PRN hydroxyzine HCl 50 mg PO BID Tobacco use date assessed: 05/17/25 Dental Screening Dental Screen Date: 05/17/25 Did you have a dental visit in the last 12 months?: No Did you have a dental problem in the last 6 months where you did not have access to dental care?: No Was dental information given to patient?: No HPI Annual Exam HPI Details Dentist: no, been a while, couple years Eye: About 2 or 3 years Snellen: Right: Left: Corrected vision: yes, STI screening:n/a Colonoscopy:n/a Pap Smer:n/a Flu:usually gets this at work COVID: x4 Tdap: about 3 to 4 years ago Diet: regular, but reports that it is not great Exercise: Reports that he runs almost every day The patient is a 35 year old male presenting for annual physical and review of lab results and management of worsening memory impairment. He reports that his symptoms of brain fog have worsened over the past couple of weeks, with difficulty remembering small things like the location of his wallet and keys. He has a history of intermittent memory issues, which he speculates could be related to undiagnosed ADHD. Recent lab results show normal thyroid function, cholesterol, and urinalysis. His white blood cell count was noted to be slightly low, which is considered a likely normal variant. The patient reports a history of an ear blockage that was previously treated with drops by another provider. For health maintenance, he has not visited a dentist since he was in the , which was several years ago. His last eye exam was two to three years ago, and his current glasses are broken. His last tetanus vaccination was three to four years ago while in the , and he is due for a booster. He has had the primary COVID-19 vaccine series and one or two boosters. He usually receives the flu vaccine. Referrals were previously made to an training project manager and psychiatry, but he reports he has not been contacted by either office yet. Health Maintenance The patient is due for several health maintenance items. He is encouraged to schedule a dental examination, as it has been several years since his last one. A vision exam is also recommended as his last one was 2-3 years ago and his glasses are broken. Thyroid labs will be rechecked in three months. The patient is scheduled to return for a follow-up visit in three months, but should schedule an appointment for the ear flush sooner. Social History - Employment: He works at [employer]. - History: He served in the [employer] and was discharged four years ago. - Diet: He reports his diet is not grea t. - Exercise: He is an active runner, runn ing almost every day if possible, aiming for 10 kilometers per run. - He prefers running outdoors to using a treadmill. Results - Labs: - Thyroid function: Normal. - Cholesterol: Normal. - Urinalysis: Normal. - CBC: White blood cell count is slightl y low. neurology referral-brain fogs forgetting keys, reports intermittent headache beliefs to be due to needing new glasses. For ear cerumen impaction. We will have the patient use a ear drops and return for ear cleaning Left ear except as above cerumen removed with lighted curette [facility] Medical History Anxiety Estela's thyroiditis ADHD Family History Father Substance abuse Schizophrenia Depression Maternal Grandmother Bipolar 2 disorder Mother Substance abuse Bipolar 2 disorder Social History Household Members: Spouse Housing: House Alcohol intake: never Patient Tobacco Use Status: Never used Tobacco e-Cigarette/Vaping Use: Never Used Substance Use Type: Marijuana Current occupational status: employed Current occupation: Maintance Cognitive needs: No Hearing needs: No Vision needs: Yes Questionnaire Thrive Questionnaire Date Thrive assessed: 05/17/25 I am a: Patient What is your living situation today?: I have a steady place to live Within the past 12 months, did the food you bought not last and you didn't have the money to get more?: Sometimes True Within the past 12 months, did you worry whether your food would run out before you got money to buy more?: Sometimes True Do you have trouble paying for medicines?: Yes Do you have trouble getting transportation to medical appointments?: No Do you have trouble paying your heating and electricity bill?: No Do you have trouble taking care of your child, family member or friend?: No Do you have trouble with day-to-day activities such as bathing, preparing meals, shopping, managing finances, etc.?: No Are you currently unemployed and looking for a job?: No Are you interested in more education?: Yes Currently or been in a relationship where the following occur: No concerns reported THRIVE Score: 2 Review of Systems Narrative Review of Systems - Neurological: Reports worsening brain fog and memory issues over the past few weeks. - He reports occasional headaches, which he attributes to not wearing his glasses. - HEENT: Reports some decline in hearing acuity. - Gastrointestinal: Denies any stomach issues. Const Denies headache(s) Eyes Denies loss of vision ENT Denies vertigo, Denies dizziness, Denies headache(s) and Denies sore throat Card Denies chest pain, Reports syncope, Denies leg edema, Reports lightheadedness and Reports dyspnea (assocated with syncope) Resp Denies cough, Denies hemoptysis, Reports dyspnea (assocated with syncope) and Denies wheezing GI Denies abdominal pain, Denies melena, Denies constipation, Denies diarrhea and Denies vomiting Denies dysuria, Denies urinary frequency and Denies urinary urgency Musc Denies arthralgias, Denies joint swelling, Denies numbness and Denies tingling Skin/Breast Reports lesions (hives during allergic episodes) Neuro Denies Abnormal speech present, Denies behavioral changes, Denies vertigo, Denies dizziness, Reports syncope, Denies headache(s), Denies loss of vision, Reports memory loss (impaired short term memory), Denies numbness and Denies tingling Psych Reports anxiety, Denies behavioral changes, Reports depression, Reports memory loss (impaired short term memory) and Reports panic attacks [place]/Lymph Denies easy bleeding and Denies easy bruising Aller/Immun Denies wheezing Physical exam (Primary Care) Vital Signs: Last Vital Signs Pulse 59 05/17/25 08:32 Resp 18 05/17/25 08:32 BP 110/78 05/17/25 08:32 Pulse Ox 99 05/17/25 08:32 Oxygen Delivery Method Room Air 05/17/25 08:32 BMI result Body Mass Index 21.8 Tobacco/Smoking Status: Tobacco use Status Tobacco use date assessed 05/17/25 05/17/25 08:36 Patient Tobacco Use Status Never used Tobacco 05/17/25 08:36 e-Cigarette/Vaping Use Never Used 05/17/25 08:36 Thrive Assessment: Date of Thrive Assessment Date Thrive assessed 05/17/25 05/17/25 08:36 Currently or been in a relationship where the following occur: No concerns reported Narrative Physical Exam - Vitals: Blood pressure was rechecked and noted to be very good. - HEENT: Eyes: Extraocular movements are intact. - Ears: Left ear canal is clear. - The right ear canal is completely occluded by impacted cerumen which is deep and in contact with the tympanic membrane; a thread-like object was also noted within the cerumen. - Abdomen: Soft, non-tender to palpation. - Musculoskeletal: Spine is non-tender to palpation. - Neurological: Strength in upper extremities appears grossly normal. Const General: healthy appearing, no acute distress, alert and awake Nutritional Appearance: well nourished Orientation/consciousness: oriented to person, oriented to place and oriented to time [facility] Ears: TM's normal bilaterally General nose exam: Normal nasal mucous membranes and turbinates present Eyes Conjunctivae: conjunctivae normal Sclerae: sclerae normal Pupils: Equal, round and reactive pupils present Neck Neck: Yes no lymphadenopathy and Yes no JVD Thyroid: Thyroid normal Carotids: no bruits Resp Effort & Inspection: normal respiratory effort and not tachypneic Auscultation: no crackles, no rales, no rhonchi and no wheezes Cardio Rate: regular rate Rhythm: regular rhythm Heart sounds: S1 normal heart sound present, S2 normal heart sound present, no murmurs and normal S1 and S2 GI Palpation (GI): Soft to palpation, nontender, no hepatomegaly and no splenomegaly Auscultation: normal bowel sounds Skin General skin exam: no rashes or lesions noted and dry skin Neuro General: oriented to person, oriented to place and oriented to time Cranial nerves: Yes Equal, round and reactive pupils present and Yes Nystagmus not present Speech: No Abnormal speech present Gait exam (Neuro): Normal gait present Motor exam (neuro): no tremor noted Deep tendon reflexes (DTR's): Right triceps reflex intensity grade: 2+, Left triceps reflex intensity grade: 2+, Rt Biceps (C5, C6): 2+, Left biceps reflex intensity grade: 2+, Right brachioradialis reflex intensity grade: 2+, Left brachioradialis reflex intensity grade: 2+, Right patellar reflex intensity grade: 2+ and Left patellar reflex intensity grade: 2+ Romberg Test: Negative Extrem Right upper extremity: full ROM Left upper extremity: full ROM Right lower extremity: full ROM; no edema Left lower extremity: full ROM; no edema Psych Mental Status: mental status grossly normal Speech and movement: Normal speech and movement present Affect: normal affect Attitude: cooperative Thought process: Normal thought process present Results Reviewed Results Reviewed: Laboratory Tests 04/01/25 10:36 WBC 4.4 L RBC 5.06 Hgb 15.2 Hct 44.8 MCV 88.5 MCH 30.0 MCHC 33.9 RDW 12.1 Plt Count 193 Triglycerides 78 Cholesterol 135 LDL Cholesterol, Calc 73 HDL Cholesterol 47 25-OH Vitamin D Total 46.4 TSH 1.54 Free T4 0.91 Urine Color Yellow Urine Appearance Clear Urine pH 8.5 Ur Specific [place] 1.015 Urine Protein Negative Urine Glucose (UA) Negative Urine Ketones Negative Urine Blood Negative Urine Nitrite Negative Ur Leukocyte Esterase Negative Coding Level of Care Code Est Pt Prev Care [id number]([id number]) Diagnoses Annual physical exam Z00.00 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 Allergic reaction, subsequent encounter T78.40XD Encounter type: subsequent encounter Syncope, unspecified syncope type R55 Syncope type: unspecified Anxiety F41.9 Substance use disorder F19.90 Attention deficit hyperactivity disorder (ADHD), unspecified ADHD type F90.9 Attention deficit-hyperactivity disorder type: unspecified Elevated blood pressure reading in office without diagnosis of hypertension R03.0 Memory impairment R41.3 Bilateral impacted cerumen H61.23 Laterality: bilateral Time Spent (min) 38 Assessment & Plan Assessment & Plan (1) Annual physical exam: Code(s): Z00.00 - Encounter for general adult medical examination without abnormal findings Category: Medical Plan: Preventative guidelines and recent labs reviewed with the patient (2) 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 (4) Syncope: Code(s): R55 - Syncope and collapse Category: Medical Qualifiers: Syncope type: unspecified Qualified Code(s): R55 - Syncope and collapse Plan: The patient is advised to monitor blood pressure at home and reduce cannabis use to mitigate syncope episodes. (5) Anxiety: Code(s): F41.9 - Anxiety disorder, unspecified Category: Medical Plan: Hydroxyzine will be prescribed for anxiety management, with instructions to take it at night initially due to potential drowsiness. (6) Substance use disorder: Code(s): F19.90 - Other psychoactive substance use, unspecified, uncomplicated Category: Medical Plan: The patient is encouraged to reduce cannabis use to alleviate syncope and anxiety symptoms. (7) ADHD: Code(s): F90.9 - Attention-deficit hyperactivity disorder, unspecified type Category: Medical Qualifiers: Attention deficit-hyperactivity disorder type: unspecified Qualified Code(s): F90.9 - Attention-deficit hyperactivity disorder, unspecified type Plan: The patient will be referred to a psychiatric nurse practitioner for evaluation and management of ADHD symptoms. (8) Elevated blood pressure reading in office without diagnosis of hypertension: Code(s): R03.0 - Elevated blood-pressure reading, without diagnosis of hypertension Category: Medical Plan: Blood pressure was elevated in office at the last visit. He was encouraged to lower his salt intake. Blood pressure is within normal limits today. Encouraged the patient to continue dietary modifications (9) Memory impairment: Code(s): R41.3 - Other amnesia Category: Medical Plan: The patient reports worsening brain fog and memory impairment, which is a new and acute issue. A referral will be placed to neurology for further evaluation. To investigate metabolic causes, labs will be ordered for immediate completion, including electrolytes, vitamin B12, and magnesium. Additionally, an STD panel will be ordered. The patient is advised to follow up on a previous referral to psychiatry (10) Cerumen impaction: Code(s): H61.20 - Impacted cerumen, unspecified ear Category: Medical Qualifiers: Laterality: bilateral Qualified Code(s): H61.23 - Impacted cerumen, bilateral Plan: Bilateral ear with the excessive cerumen. Right ear is completely impacted and the left ear was almost completely blocked as well. Cerumen removed out of left ear we will lighted curette. Attempted right ear, but the patient complain of discomfort. The patient will be prescribed ear drops, or can obtain them [id number], to be used to soften the cerumen. He is instructed to apply 5 small drops to the right ear twice daily for at least four days. He will need to schedule a follow-up appointment specifically for an ear cleaning/flush after completing the course of drops. Plan Plan Discussion Notes I informed the patient that his recent lab work, including thyroid and cholesterol levels, was good. I explained that his slightly low white blood cell count is likely a normal variation for him and not a cause for concern. We discussed his primary concern of worsening brain fog and memory issues. I explained that this could be due to several factors, including imbalances in electrolytes or vitamin deficiencies, and that these can affect memory. I recommended a referral to a neurologist to ensure a thorough evaluation of his memory symptoms. I ordered immediate blood tests for electrolytes, vitamin B12, magnesium, and STDs to provide the neurologist with baseline information. Regarding his ear, I informed him that the examination revealed a complete blockage in the right ear canal with wax that is very deep and touching the eardrum. I explained that attempting to remove it today would be painful. I provided a plan for him to use softening drops twice a day for at least four days, and then to schedule a follow-up appointment for an ear flush. We reviewed his health maintenance needs, including an updated tetanus vaccine, a dental exam, and a vision exam. I advised a follow-up visit in three months to recheck thyroid labs, with the understanding that he would return sooner for the ear flush and to review the results of his memory-related blood work. Patient Instructions - Please go for blood tests as soon as possible to investigate your memory problems. - You will receive a referral to a neurologist (a specialist for brain and nerve issues). - For your blocked right ear, use 5 drops of the recommended ear drop solution two times a day for at least four days. - After using the drops, schedule an appointment specifically for an ear cleaning. - Do not pick at the wax in your ear, as it is very deep and will cause pain. - Schedule an eye exam to get new glasses. - Schedule a dental check-up. - You are due for a tetanus booster shot. - If you do not hear from the training project manager or psychiatry offices about your previous referrals, please contact our office. - Please schedule a follow-up appointment in three months to recheck your thyroid labs. Orders: Orders UA CC w/rflx Micro + Cult Today R41.3 - Other amnesia Hemoglobin A1c Today R41.3 - Other amnesia CRP High Sensitivity Today R41.3 - Other amnesia TSH reflex Free T4 3 Months E06.3 - Autoimmune thyroiditis Comprehensive Lucas. Panel Fast Today R41.3 - Other amnesia Magnesium Today R41.3 - Other amnesia Complete Blood Count Auto Diff Today R41.3 - Other amnesia HIV Ab/Ag Today R41.3 - Other amnesia Syphilis Screen Today R41.3 - Other amnesia Vitamin D 25-OH Total Today R41.3 - Other amnesia Vitamin B12 and Folate Today R41.3 - Other amnesia Free T4 (Free Thyroxine) 3 Months E06.3 - Autoimmune thyroiditis Referrals Neurology Referral R41.3 - Other amnesia
== END 2025-05-17 09:17 | disposition home or self-care (01) ==
LOC: HO.HMCH 08:30
DX: Z00.00 Encounter for general adult medical examination without abnormal findings (principal); E06.3 Autoimmune thyroiditis; T78.40XD Allergy, unspecified, subsequent encounter; R55 Syncope and collapse; F41.9 Anxiety disorder, unspecified; F19.90 Other psychoactive substance use, unspecified, uncomplicated; F90.9 Attention-deficit hyperactivity disorder, unspecified type; R03.0 Elevated blood-pressure reading, without diagnosis of hypertension; R41.3 Other amnesia; H61.23 Impacted cerumen, bilateral